=== PATIENT | male | born 1950 | race African-American/Black ===

== ENCOUNTER 2018-10-25 12:53 | Emergency (ER) | payer OTHER, SELFPAY ==
[2018-10-25] VITALS (8 sets, daily range): BP systolic 118–179; BP diastolic 62–99; PULSE 56–78; RESP 14–22; TEMP 36.6; O2SAT 95–99
--- NOTE | 2018-10-25 13:07 | DI.RAD.S_ITS ---
PROCEDURE: XR CHEST 1V INDICATIONS: chest pain TECHNIQUE: One view of the chest was acquired. COMPARISON: [facility], , CHEST 1 VIEW, 11/20/2015, 17:17. FINDINGS: Surgical changes and devices: None. Lungs and pleura: Lungs are clear. No pleural effusions or pneumothorax. Mediastinum: Mediastinal contours appear normal. Heart size is enlarged. Bones and chest wall: No suspicious bony lesions. Overlying soft tissues appear unremarkable. IMPRESSION: No acute cardiopulmonary pathology. Dictated by: Davi Vasquez M.D. on 10/25/2018 at 13:35 Approved by: Davi Vasquez M.D. on 10/25/2018 at 13:37
[2018-10-25 13:18] LABS: Add Manual Diff / Slide Review NO; Basophils Absolute Auto 100 /uL (0-100); Basophils Percent Auto 0.7 % (0-2); Eosinophils Absolute Auto 100 /uL (0-450); Eosinophils Percent Auto 1.5 % (2-4); Hematocrit 40.7 % (41-53); Hemoglobin 13.7 g/dL (13.5-17.5); Lymphocytes Absolute Auto 900 /uL (1100-4500); Lymphocytes Percent Auto 13.3 % (25-40); Mean Corpuscular HGB Conc 33.8 % (30-36); Mean Corpuscular Hemoglobin 32.9 PG (26-34); Mean Corpuscular Volume 97.3 fL (80-100); Monocytes Absolute Auto 500 /uL (0-900); Monocytes Percent Auto 7.6 % (3-14); Neutrophils Absolute Auto 5300 /uL (1500-7000); Neutrophils Percent Auto 76.9 % (50-75); Platelet Count 227 X10^3/uL (150-400); Red Blood Cell Count 4.18 X10^6/uL (4.5-5.9); White Blood Cell Count 6.9 X10^3/uL (4.5-11.0)
[2018-10-25 13:34] LABS: Alanine Aminotransferase 16 IU/L (21-72); Albumin 4.1 g/dL (3.5-5.0); Albumin Globulin Ratio 1.6 (1.0-2.8); Alkaline Phosphatase 62 U/L (38-126); Aspartate Aminotransferase 19 IU/L (17-59); BUN Creatinine Ratio 21.4 (6-22); Bilirubin Total 0.6 mg/dL (0.2-1.3); Blood Urea Nitrogen 15 mg/dL (9-20); Calcium 9.5 mg/dL (8.4-10.2); Carbon Dioxide 18 mmol/L (22-32); Chloride 102 mmol/L (98-107); Creatine Kinase 82 U/L (55-170); Estimated Glomerular Filt Rate > 60.0 mL/min (>60); Globulin 2.6 g/dL (1.7-4.1); Glucose 375 mg/dL (80-110); HEMOLYSIS 21 (0-50); Potassium 3.9 mmol/L (3.4-5.1); Sodium 135 mmol/L (137-145); Total Protein 6.7 g/dL (6.3-8.2)
[2018-10-25 14:08] LABS: Troponin I 0.214 ng/mL (0.01-0.034)
--- NOTE | 2018-10-25 14:11 | ED.CHESTPAIN ---
HPI - Chest Pain General Chief Complaint: Chest Pain Stated Complaint: HEADACHE STIFF NECK CHEST PAIN SOB Time Seen by Provider: 10/25/18 13:06 Source: patient Mode of arrival: ambulatory Limitations: no limitations History of Present Illness HPI narrative: 67M former smoker with extensive history of coronary artery disease presents with 2 days of exertional chest pain and radiation to his neck. The symptoms are consistent with the symptoms presenting prior to his myocardial infarction in 2014 which resulted in 4 stents. His last provocative testing was with this episode. He denies recent travel or illness. He has had few associated symptoms such as nausea, vomiting or diaphoresis but does admit to shortness of breath and lightheadedness. His pain comes on with any exertion such as walking to the mailbox and goes away with rest. He takes full-dose aspirin, beta-obie and statin daily. His primary golf club facer is Dr. Yaquelin ALVARADO complaint: chest pain Onset (ago): day(s) Duration: improved Onset: during exertion Pain location: substernal Severity: moderate Quality: tightness Pain radiation: neck Relieving factors: rest Related Data Home Medications Medication Instructions Recorded Confirmed Lupron Depot (3 month) 1 dose IM [id number] 10/25/18 10/25/18 atorvastatin [Lipitor] 40 mg PO DAILY 10/25/18 10/25/18 glipizide 10 mg PO BID 10/25/18 10/25/18 insulin NPH isoph U-100 human 25 units SUBCUT BID 10/25/18 10/25/18 [Humulin N NPH Insulin KwikPen] lisinopril 10 mg PO DAILY 10/25/18 10/25/18 megestrol 1 tab PO DAILY 10/25/18 10/25/18 metoprolol succinate 50 mg PO DAILY 10/25/18 10/25/18 Allergies Allergy/AdvReac Type Severity Reaction Status Date / Time Sulfa (Sulfonamide Allergy Unknown Unverified 09/22/17 11:56 Antibiotics) [SULFA (SULFONAMIDE ANTIBIOTICS)] Review of Systems Constitutional Denies chills, Denies fever(s), Denies lethargy and Denies weakness Eyes Denies change in vision, Denies eye discharge, Denies irritation and Denies loss of vision ENT Ears, Nose, Mouth, and Throat: Denies change in voice, Denies neck pain and Denies sore throat Cardiovascular Reports chest pain, Reports chest pain with activity, Denies irregular heart rhythm, Denies lightheadedness, Denies palpitations, Denies dyspnea, Denies dyspnea on exertion and Denies orthopnea Respiratory Denies cough, Denies dyspnea, Denies dyspnea on exertion and Denies wheezing Gastrointestinal Gastrointestinal: Denies abdominal pain, Denies change in bowel habits, Denies diarrhea, Denies nausea and Denies vomiting Genitourinary Denies hematuria, Denies flank pain, Denies urinary incontinence and Denies urinary urgency Musculoskeletal Denies neck pain Integumentary/Breasts Denies pruritus, Denies erythema, Denies rash and Denies wounds Neurologic Denies confusion, Denies loss of vision and Denies weakness Psychiatric Denies anxiety, Denies confusion, Denies depression, Denies homicidal ideation and Denies suicidal ideation Endocrine Denies palpitations Hematologic/Lymphatic Denies easy bruising Allergic/Immunologic Denies wheezing Exam Narrative Exam Narrative: GENERAL: 67-year-old male resting comfortably HEAD: Atraumatic. Normocephalic. No temporal or scalp tenderness. EYES: Pupils equal round and reactive. Extraocular motions intact. No scleral icterus. No injection or drainage. ENT: Nose without bleeding, purulent drainage or septal hematoma. Throat without erythema, tonsillar hypertrophy or exudate. Uvula midline. Airway patent. NECK: Trachea midline. No JVD or lymphadenopathy. Supple, nontender, no meningeal signs. CARDIOVASCULAR: Regular rate and rhythm without murmurs, gallops, or rubs. RESPIRATORY: Clear to auscultation. Breath sounds equal bilaterally. No wheezes, rales, or rhonchi. GASTROINTESTINAL: Abdomen soft, non-tender, nondistended. No hepato-splenomegaly, or palpable masses. No guarding. EXTREMITIES: No clubbing, cyanosis, or edema. No joint tenderness, effusion, or edema noted. BACK: Nontender without deformity or crepitance. No flank tenderness. NEURO: AOx3. SKIN: No rash or erythema. Initial Vital Signs Initial Vital Signs: Vital Signs Temperature 97.9 F 10/25/18 13:02 Pulse Rate 77 10/25/18 13:02 Respiratory Rate 20 10/25/18 13:02 Blood Pressure 179/99 H 10/25/18 13:02 Pulse Oximetry 97 10/25/18 13:02 Course Orders Ordered: ED Orders 10/25/18 13:07 Chest [XR chest 1V] Stat EKG-12 Lead Stat 10/25/18 13:10 Complete Blood Count AUTO DIFF Stat Comprehensive Metabolic Panel Stat Troponin & CK Cardiac Panel Stat 10/25/18 16:35 Troponin I Stat 10/25/18 16:39 EKG-12 Lead Routine Discontinued Medications Aspirin (Aspirin Chew) 324 mg PO NOW ONE Stop: 10/25/18 14:13 Last Admin: 10/25/18 14:50 Dose: 324 mg Heparin Sodium (Porcine) (Heparin) 5,000 unit IV NOW ONE Stop: 10/25/18 14:17 Last Admin: 10/25/18 14:42 Dose: 5,000 unit Heparin Sodium/Dextrose (Heparin Drip) 25,000 unit in 500 mls @ 20.14 mls/hr IV CONT MARINA; Protocol Last Admin: 10/25/18 14:42 Dose: 12 units/kg/hr, 20.14 mls/hr Consultations Consultation #1: Called to patient's primary golf club facer, Dr. Jamison, and given description of symptoms today recommends transfer to [facility] call to Dr. Leon to discuss case, he recommends heparin bolus / drip and call to hospitalist call to Dr. Milian ([facility] hospitalist) whom accepts patient, will recontact with bed assignment Vital Signs - 8 hr 10/25/18 13:02 10/25/18 14:30 10/25/18 15:00 Temperature 97.9 F Pulse Rate 77 72 76 Respiratory Rate 20 17 14 Blood Pressure 179/99 H Blood Pressure [Right Arm] 159/96 H 163/88 H Pulse Oximetry 97 96 97 10/25/18 15:30 10/25/18 16:30 10/25/18 17:00 Temperature Pulse Rate 61 67 56 L Respiratory Rate 17 22 18 Blood Pressure Blood Pressure [Right Arm] 159/91 H 118/62 143/84 H Pulse Oximetry 95 95 10/25/18 18:00 10/25/18 18:30 Temperature Pulse Rate 78 59 L Respiratory Rate 20 18 Blood Pressure Blood Pressure [Right Arm] 142/79 H 146/95 H Pulse Oximetry 99 96 MDM - Chest Pain Lab Data Result diagrams: 10/25/18 13:10 10/25/18 13:10 Lab Results 10/25/18 10/25/18 10/25/18 Range/Units 13:10 13:10 16:35 WBC 6.9 (4.5-11.0) X10^3/uL RBC 4.18 L (4.5-5.9) X10^6/uL Hgb 13.7 (13.5-17.5) g/dL Hct 40.7 L (41-53) % MCV 97.3 (80-100) fL MCH 32.9 (26-34) PG MCHC 33.8 (30-36) % RDW 13.0 (11.6-14.8) % Plt Count 227 (150-400) X10^3/uL Neut % (Auto) 76.9 H (50-75) % Lymph % (Auto) 13.3 L (25-40) % [place] % (Auto) 7.6 (3-14) % Eos % (Auto) 1.5 L (2-4) % Baso % (Auto) 0.7 (0-2) % Neut # (Auto) 5300 (2542-1287) /uL Lymph # (Auto) 900 L (8236-6944) /uL [place] # (Auto) 500 (0-900) /uL Eos # (Auto) 100 (0-450) /uL Baso # (Auto) 100 (0-100) /uL Sodium 135 L (137-145) mmol/L Potassium 3.9 (3.4-5.1) mmol/L Chloride 102 (98-107) mmol/L Carbon Dioxide 18 L (22-32) mmol/L BUN 15 (9-20) mg/dL Creatinine 0.70 (0.66-1.25) mg/dL Estimated GFR > 60.0 (>60) mL/min BUN/Creatinine Ratio 21.4 (6-22) Glucose 375 H (80-110) mg/dL Calcium 9.5 (8.4-10.2) mg/dL Total Bilirubin 0.6 (0.2-1.3) mg/dL AST 19 (17-59) IU/L ALT 16 L (21-72) IU/L Alkaline Phosphatase 62 (38-126) U/L Total Creatine Kinase 82 (55-170) U/L CK-MB (CK-2) TNP CK-MB (CK-2) Rel Index TNP Troponin I 0.214 H* 0.267 H* (0.01-0.034) ng/mL Total Protein 6.7 (6.3-8.2) g/dL Albumin 4.1 (3.5-5.0) g/dL Globulin 2.6 (1.7-4.1) g/dL Albumin/Globulin Ratio 1.6 (1.0-2.8) MDM Narrative Medical decision making narrative: 67-year-old male with history of 4 stents has been in his normal state of health for the past 3 or 4 years until developing chest pain with any exertion over the past 2 days. Patient has multiple EKG showing no ischemic change but initial troponin is elevated. Patient requires transfer to [facility] for cardiac evaluation and likely heart catheterization Critical Care Time Critical Care Time: Yes Total Critical Care Time: 30 Attestation: The high probability of a clinically significant, sudden or life threatening deterioration of the [CV] system(s) required my full and direct attention, intervention and personal management. The aggregate critical care time was [30] minutes. This time is in addition to time spent performing reported procedures but includes the following: [x] Data Review and interpretation [x] Patient assessment and monitoring of vital signs [x] Documentation [x] Medication orders and management Discharge Plan Departure Patient Disposition: [facility] Clinical Impression: ACS (acute coronary syndrome) Discharge Date/Time: 10/25/18 19:00 Interventions: ED Discharge Assessment Last Done: 10/25/18 19:01 Prescriptions: No Action atorvastatin [Lipitor] 40 mg Tablet 40 mg PO DAILY RF: 0 metoprolol succinate 50 mg Tablet Extended Release 24 Hr 50 mg PO DAILY RF: 0 glipizide 10 mg Tablet Extended Release 24hr 10 mg PO BID RF: 0 lisinopril 10 mg Tablet 10 mg PO DAILY RF: 0 Humulin N NPH Insulin KwikPen 100 unit/mL (3 mL) Insulin Pen 25 units subcut BID RF: 0 Lupron Depot (3 month) 1 dose IM [id number] RF: 0 megestrol 1 tab PO DAILY RF: 0 Referrals: Maryjane Tucker MD [Primary Care Provider] -
[2018-10-25] MEDS: HEPARIN DRIP 25,000 UNIT/500 ML IV.SOLN 20.14 UNIT IV (14:42)
[2018-10-25] MEDS: HEPARIN 5,000 UNIT/ML VIAL 5000 UNIT IV (14:42)
[2018-10-25] MEDS: ASPIRIN 81 MG TAB 324 MG PO (14:50)
--- NOTE | 2018-10-25 16:41 | PC.NURSE ---
8 beat run of vtach, symptomatic with nausea/palpatations, notified
[2018-10-25 17:13] LABS: Troponin I 0.267 ng/mL (0.01-0.034)
== END 2018-10-25 19:00 | disposition short-term general hospital (02) ==
PROVIDERS: Emergency Provider Emergency Medicine; PCP Internal Medicine
DX: I24.9 Acute ischemic heart disease, unspecified (principal)
CPT/HCPCS: 71045; 80053; 82550; 84484; 85025; 93005; 93010; 96365; 96366; 96375; 99283; 99285; J1644

== ENCOUNTER 2019-03-29 00:03 | Emergency (ER) | payer OTHER, SELFPAY ==
[2019-03-29 00:27] VITALS: BP 172/95; PULSE 64; RESP 18; TEMP 36.7; O2SAT 95
--- NOTE | 2019-03-29 00:31 | DI.CT.S_ITS ---
PROCEDURE: CT HEAD/BRAIN WO CON INDICATIONS: headache dizzy TECHNIQUE: Noncontrast 4.5 mm thick angled axial sections acquired from the foramen magnum to the vertex, with coronal and sagittal reformats. For radiation dose reduction, the following was used: automated exposure control, adjustment of mA and/or kV according to patient size. COMPARISON: [facility], CT, HEAD WITHOUT CONTRAST, 03/17/2017, 11:27. FINDINGS: Image quality: Excellent. CSF spaces: Basal cisterns are patent. No extra-axial fluid collections. The ventricles are symmetric in size and shape. Brain: No intracranial bleeds or masses. There is cerebral volume loss for age, with resultant ventricular and sulcal prominence. There are mild periventricular and deep white matter chronic small vessel ischemic changes. There is intracranial internal carotid artery atherosclerosis. Skull and face: Calvarium and visualized facial bones appear intact, without suspicious lesions. Again noted are bilateral occipital subcutaneous lesions which are unchanged in size and appearance, consistent with benign etiology. Sinuses: Bilateral maxillary sinus mucosal thickening and bilateral ethmoid mucosal thickening are present. IMPRESSION: 1. Chronic sinus disease. 2. Age related volume loss and mild small vessel ischemic change. 3. No evidence acute stroke, hemorrhage, or mass. Dictated by: Manny Cruz M.D. on 03/29/2019 at 8:18 Approved by: Manny Cruz M.D. on 03/29/2019 at 8:21
[2019-03-29] MEDS: SODIUM CHLORIDE 0.9% 1,000 ML 150 ML IV (01:07)
[2019-03-29 01:16] LABS: Add Manual Diff / Slide Review NO; Basophils Absolute Auto 0 /uL (0-100); Basophils Percent Auto 0.7 % (0-2); Eosinophils Absolute Auto 300 /uL (0-450); Eosinophils Percent Auto 5.2 % (2-4); Lymphocytes Absolute Auto 900 /uL (1100-4500); Lymphocytes Percent Auto 17.2 % (25-40); Mean Corpuscular HGB Conc 33.2 % (30-36); Mean Corpuscular Hemoglobin 31.6 PG (26-34); Mean Corpuscular Volume 95.1 fL (80-100); Monocytes Absolute Auto 700 /uL (0-900); Monocytes Percent Auto 12.8 % (3-14); Neutrophils Absolute Auto 3500 /uL (1500-7000); Neutrophils Percent Auto 64.1 % (50-75); Platelet Count 219 X10^3/uL (150-400); Red Cell Distribution Width 13.9 % (11.6-14.8); White Blood Cell Count 5.5 X10^3/uL (4.5-11.0)
[2019-03-29 01:17] VITALS: BP 149/95; PULSE 69; RESP 17
[2019-03-29 01:19] LABS: INR 0.9 (0.9-1.3); Prothrombin Time 10.1 SECONDS (10.1-12.7)
[2019-03-29 01:22] LABS: PTT Partial Thromboplastin Tim 31 SECONDS (26.4-36.2)
[2019-03-29 01:24] LABS: Alanine Aminotransferase 23 IU/L (21-72); Albumin 3.8 g/dL (3.5-5.0); Albumin Globulin Ratio 1.4 (1.0-2.8); Alkaline Phosphatase 72 U/L (38-126); Aspartate Aminotransferase 18 IU/L (17-59); BUN Creatinine Ratio 18.5 (6-22); Bilirubin Total 0.4 mg/dL (0.2-1.3); Blood Urea Nitrogen 24 mg/dL (9-20); Calcium 8.7 mg/dL (8.4-10.2); Carbon Dioxide 25 mmol/L (22-32); Chloride 103 mmol/L (98-107); Estimated Glomerular Filt Rate 54.7 mL/min (>60); Globulin 2.7 g/dL (1.7-4.1); Glucose 315 mg/dL (80-110); HEMOLYSIS 16 (0-50); Potassium 3.9 mmol/L (3.4-5.1); Sodium 137 mmol/L (137-145); Total Protein 6.5 g/dL (6.3-8.2)
[2019-03-29 01:35] LABS: Troponin I < 0.012 ng/mL (0.01-0.034)
--- NOTE | 2019-03-29 01:45 | ED.HA ---
HPI - Headache General Chief Complaint: Headache Stated Complaint: pain rt side of head 2 days/headache dizzy Time Seen by Provider: 03/29/19 00:31 Source: patient and family Mode of arrival: Ambulatory Limitations: no limitations History of Present Illness HPI Narrative: Patient is a 68-year-old male who presents with headache and right eye pain. He says that he has been having pain around his right eye ongoing for the last 2 days. It has never really gone away. He denies any blackening or loss of vision. He says that he is dizzy whenever he looks down or bends down. He has no numbness tingling or weakness in his extremities. No facial drooping or slurring of speech. He has not taken any Tylenol or ibuprofen to help with pain. He does take aspirin daily due to coronary artery disease. He denies any chest pain or shortness of breath. She states that now the pain around his eye is like a 1 or 2. He is not sensitive to light or noise. MD Complaint: headache Onset (ago): day(s) (2) Location: right Severity: moderate Severity scale (1-10): 2 Quality: dull Relieving factors: nothing Exacerbating factors: none Related Data Home Medications Medication Instructions Recorded Confirmed Lupron Depot (3 month) 1 dose IM [id number] 10/25/18 10/25/18 atorvastatin [Lipitor] 40 mg PO DAILY 10/25/18 10/25/18 glipizide 10 mg PO BID 10/25/18 10/25/18 insulin NPH isoph U-100 human 25 units SUBCUT BID 10/25/18 10/25/18 [Humulin N NPH Insulin KwikPen] lisinopril 10 mg PO DAILY 10/25/18 10/25/18 megestrol 1 tab PO DAILY 10/25/18 10/25/18 metoprolol succinate 50 mg PO DAILY 10/25/18 10/25/18 Allergies Allergy/AdvReac Type Severity Reaction Status Date / Time Sulfa (Sulfonamide Allergy Unknown Verified 03/29/19 00:29 Antibiotics) [SULFA (SULFONAMIDE ANTIBIOTICS)] trazodone Allergy Verified 03/29/19 00:29 Review of Systems Review of Systems Narrative: GENERAL: Denies chills, fatigue, malaise, fever, sweats, travel HEENT: Denies sinus pain, ear pain, sore throat, difficulty swallowing, neck pain RESPIRATORY: Denies dyspnea, cough, wheezing, hemoptysis, sputum. CARDIOVASCULAR: Denies chest pain, palpitations, orthopnea, edema GASTROINTESTINAL: Denies nausea, vomiting, abdominal pain, diarrhea, constipation, melena. : Denies dysuria, frequency, incontinence, hematuria, urinary retention, flank pain. MUSCULOSKELETAL: Denies weakness, joint pain, or bony pain SKIN: No rash, no erythema, no pruritus NEUROLOGIC: See HPI PSYCHIATRIC: No concerning psychosocial issues. 12 point review of systems is negative except for those stated above and HPI Patient History Medical History Benign paroxysmal positional vertigo (Acute) Coronary artery disease (Acute) TIA (transient ischemic attack) (Acute) Social History Smoking Status: Former smoker Social History Smoking Status: Former smoker Substance Use Type: does not use Exam Initial Vital Signs Initial Vital Signs: Vital Signs Temperature 98.1 F 03/29/19 00:27 Pulse Rate 64 03/29/19 00:27 Respiratory Rate 18 03/29/19 00:27 Blood Pressure 172/95 H 03/29/19 00:27 Pulse Oximetry 95 03/29/19 00:27 GENERAL: Well-appearing, well-nourished and in no acute distress. HEENT: Head atraumatic,EOMI, pupils reactive, slightly tender around the right eye no erythema no facial bone deformity face symmetric, CARDIOVASCULAR: Regular rate and rhythm without murmurs, rubs or gallops. RESPIRATORY: Breath sounds equal bilaterally, no wheezes rales or rhonchi. ABDOMEN: Soft, nontender. Normoactive bowel sounds all 4 quadrants. No guarding or rebound. EXTREMITIES: Normal range of motion, no clubbing or edema. Neurovascularly intact NEUROLOGICAL: Alert and oriented x4.Normal gait and speech. Cranial nerves II through XII grossly intact. SKIN: Warm, dry, no laceration, no petechiae, no rashes or lesions. No erythema swelling around the eye Scores NIH Stroke Scale Level of Conciousness: Alert, keenly responsive Ask month/age: Answers both questions correctly. Open/close eyes, close hand: Performs both tasks correctly Best gaze horizontal: Normal Visual silva: No visual loss Facial palsy: Normal symetrical movement Left arm drift: No drift for full 10 sec Right arm drift: No drift for full 10 sec Left leg drift: No drift for full 10 sec Right leg drift: No drift for full 10 sec Limb ataxia: Absent Sensory on face/arms/legs: Normal, no sensory loss Best language: No aphasia, normal Dysarthria: Normal Extinction or inattention: No abnormality Total NIH Stroke scale score: 0 Course Orders Ordered: ED Orders 03/29/19 00:31 CT head/brain wo con Stat EKG-12 Lead Stat 03/29/19 01:00 Complete Blood Count AUTO DIFF Stat Comprehensive Metabolic Panel Stat Partial Thromboplastin Time Stat Prothrombin Time INR Stat Troponin I Stat Discontinued Medications Sodium Chloride (Normal Saline 0.9%) 1,000 mls @ 150 mls/hr IV CONT MARINA Last Infusion: 03/29/19 02:44 Dose: 1,000 mls/hr Documented by: Admin: 03/29/19 01:07 Dose: 150 mls/hr Documented by: LOIS Ketorolac Tromethamine (Toradol) 30 mg IV NOW ONE Stop: 03/29/19 01:46 Last Admin: 03/29/19 01:48 Dose: 30 mg Documented by: ANGIE Vital Signs Vital signs: Vital Signs - 8 hr 03/29/19 00:27 03/29/19 01:17 03/29/19 01:58 Temperature 98.1 F Pulse Rate 64 69 73 Respiratory Rate 18 17 22 Blood Pressure 172/95 H Blood Pressure [Left Arm] 149/95 H 164/76 H Pulse Oximetry 95 03/29/19 02:30 Temperature Pulse Rate 62 Respiratory Rate 16 Blood Pressure Blood Pressure [Left Arm] 147/73 H Pulse Oximetry MDM - Headache Lab Data Attestation: I reviewed the patient's lab results. Result diagrams: 03/29/19 01:00 03/29/19 01:00 Labs: Lab Results 03/29/19 03/29/19 03/29/19 Range/Units 01:00 01:00 01:00 WBC 5.5 (4.5-11.0) X10^3/uL RBC 4.10 L (4.5-5.9) X10^6/uL Hgb 13.0 L (13.5-17.5) g/dL Hct 39.0 L (41-53) % MCV 95.1 (80-100) fL MCH 31.6 (26-34) PG MCHC 33.2 (30-36) % RDW 13.9 (11.6-14.8) % Plt Count 219 (150-400) X10^3/uL Neut % (Auto) 64.1 (50-75) % Lymph % (Auto) 17.2 L (25-40) % [place] % (Auto) 12.8 (3-14) % Eos % (Auto) 5.2 H (2-4) % Baso % (Auto) 0.7 (0-2) % Neut # (Auto) 3500 (5405-1293) /uL Lymph # (Auto) 900 L (8261-0628) /uL [place] # (Auto) 700 (0-900) /uL Eos # (Auto) 300 (0-450) /uL Baso # (Auto) 0 (0-100) /uL PT 10.1 (10.1-12.7) SECONDS INR 0.9 (0.9-1.3) APTT 31 (26.4-36.2) SECONDS Sodium 137 (137-145) mmol/L Potassium 3.9 (3.4-5.1) mmol/L Chloride 103 (98-107) mmol/L Carbon Dioxide 25 (22-32) mmol/L BUN 24 H (9-20) mg/dL Creatinine 1.30 H (0.66-1.25) mg/dL Estimated GFR 54.7 L (>60) mL/min BUN/Creatinine Ratio 18.5 (6-22) Glucose 315 H (80-110) mg/dL Calcium 8.7 (8.4-10.2) mg/dL Total Bilirubin 0.4 (0.2-1.3) mg/dL AST 18 (17-59) IU/L ALT 23 (21-72) IU/L Alkaline Phosphatase 72 (38-126) U/L Troponin I < 0.012 (0.01-0.034) ng/mL Total Protein 6.5 (6.3-8.2) g/dL Albumin 3.8 (3.5-5.0) g/dL Globulin 2.7 (1.7-4.1) g/dL Albumin/Globulin Ratio 1.4 (1.0-2.8) Imaging Data CT scan - head: 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 interval [address] elevations or depressions MDM Narrative Medical decision making narrative: Patient's pain after Toradol is completely gone. He says that IV fluids have helped does does need this he does have a history of vertigo. He has no real focal deficits no chest pain or cardiac symptoms. Discharge Plan Departure Patient Disposition: Home Clinical Impression: Headache Qualifiers: Headache type: unspecified Headache chronicity pattern: acute headache Intractability: not intractable Qualified Code(s): R51 - Headache Discharge Date/Time: 03/29/19 02:35 Instructions: DI for Headache Activity Restrictions/Additional Instructions: *You have been diagnosed with headache *What to do: Increased water intake *Continue to take medications as directed *Follow up with your primary care provider in 2-3 days *Return to ER if you should have worsening headache or eye pain loss of vision blurry vision facial droop, weakness numbness, tingling, chest pain or any new, worsening or concerning symptoms Prescriptions: No Action atorvastatin [Lipitor] 40 mg Tablet 40 mg PO DAILY RF: 0 metoprolol succinate 50 mg Tablet Extended Release 24 Hr 50 mg PO DAILY RF: 0 glipizide 10 mg Tablet Extended Release 24hr 10 mg PO BID RF: 0 lisinopril 10 mg Tablet 10 mg PO DAILY RF: 0 Humulin N NPH Insulin KwikPen 100 unit/mL (3 mL) Insulin Pen 25 units subcut BID RF: 0 Lupron Depot (3 month) 1 dose IM [id number] RF: 0 megestrol 1 tab PO DAILY RF: 0 Referrals: Maryjane Tucker MD [Primary Care Provider] -
[2019-03-29] MEDS: KETOROLAC 60 MG/2 ML VIAL 30 MG IV (01:48)
[2019-03-29 01:58] VITALS: BP 164/76; PULSE 73; RESP 22
[2019-03-29 02:30] VITALS: BP 147/73; PULSE 62; RESP 16
== END 2019-03-29 02:35 | disposition home or self-care (01) ==
PROVIDERS: Emergency Provider Emergency Medicine; PCP Internal Medicine
DX: R51 Headache (principal); R07.9 Chest pain, unspecified
CPT/HCPCS: 36415; 70450; 80053; 84484; 85025; 85610; 85730; 93005; 96361; 96374; 99283; 99285; J1885